=== PATIENT | male | born 1945 | race Caucasian/White ===

== ENCOUNTER 2023-09-22 11:05 | Inpatient (IN) | payer BC, MEDICARE ==
[2023-09-22 11:59] LABS: BASOPHILS ABSOLUTE AUTO 0.05 K/uL (0.00-0.10); BASOPHILS PERCENT AUTO 0.6 % (0.1-1.3); EOSINOPHILS PERCENT AUTO 0.3 % (0.0-5.4); HEMATOCRIT 35.6 % (38.4-49.7); HEMOGLOBIN 11.9 g/dL (12.9-16.9); IMMATURE GRAN ABSOLUTE AUTO 0.06 K/uL (0.00-0.23); IMMATURE GRAN PERCENT AUTO 0.8 % (0.0-0.7); LYMPHOCYTES ABSOLUTE AUTO 0.55 K/uL (0.8-3.3); LYMPHOCYTES PERCENT AUTO 6.9 % (11.4-47.7); MEAN CORPUSCULAR HEMOGLOBIN 32.2 pg (31.6-35.5); MEAN CORPUSCULAR HGB CONC 33.4 g/dL (31.6-35.5); MEAN CORPUSCULAR VOLUME 96.2 fL (81.4-99.0); MONOCYTES PERCENT AUTO 6.3 % (3.3-12.6); NEUTROPHILS ABSOLUTE AUTO 6.82 K/uL (1.0-7.6); NEUTROPHILS PERCENT AUTO 85.1 % (40.0-78.1); PLATELET COUNT,PLT 230 K/uL (130-375)
[2023-09-22 12:00] LABS: EOSINOPHILS ABSOLUTE AUTO 0.02 K/uL (0.00-0.40)
[2023-09-22 12:14] LABS: BLOOD UREA NITROGEN,BUN 15 mg/dL (7-18); CALCIUM 8.8 mg/dL (8.5-10.1); CARBON DIOXIDE,CO2 29 mmol/L (21-32); CHLORIDE,CL 100 mmol/L (100-108); CREATININE 1.4 mg/dL (0.8-1.3); ESTIMATED GFR 52 mL/min (>60); GLUCOSE RANDOM 104 mg/dL (74-106); POTASSIUM,K 5.1 mmol/L (3.6-5.2); SODIUM,NA 134 mmol/L (140-148)
[2023-09-22 12:15] LABS: ANION GAP 10.1 mmol/L (5.0-14.0)
[2023-09-22] MEDS: Furosemide 20 MG/2 ML VIAL IVPUSH ONE (14:25)
[2023-09-22] MEDS: Sodium Chloride 0.9% 500 ML IV SCH (14:27)
[2023-09-22 15:12] LABS: APPEARANCE,URINE CLEAR (CLEAR); BILIRUBIN,URINE NEGATIVE (NEGATIVE); COLOR,URINE YELLOW (YELLOW); GLUCOSE,URINE NEGATIVE (NEGATIVE); KETONES,URINE NEGATIVE (NEGATIVE); LEUKOCYTE ESTERASE,URINE NEGATIVE (NEGATIVE); NITRITE,URINE NEGATIVE (NEGATIVE); OCCULT BLOOD,URINE SMALL (NEGATIVE); PH,URINE 5.5 (5.0-8.0); PROTEIN,URINE NEGATIVE (NEGATIVE); UROBILINOGEN,URINE 0.2 EU/dL (0.2-1.0)
[2023-09-22 15:18] LABS: AMORPHOUS SEDIMENT,URINE NOT SEEN; BACTERIA,URINE NOT SEEN; EPITHELIAL CELLS,URINE RARE; MUCUS,URINE NOT SEEN; RBC,URINE 0-5 (0-5); WBC,URINE 0-5 (0-5)
[2023-09-22] MEDS ORDERED: Ondansetron 4 MG Tab.DIS PO PRN (15:33)
[2023-09-22] MEDS ORDERED: Zolpidem 5 MG Tab PO PRN (15:33)
[2023-09-22] MEDS ORDERED: Acetaminophen 325 MG Tab PO PRN (15:33)
[2023-09-22] MEDS ORDERED: cefTRIAXone 1 GM Vial IM SCH (15:45)
[2023-09-22] MEDS ORDERED: LORazepam 2 MG/ML SDV IV SCH (15:45)
[2023-09-22 16:00] LABS: INR 1.1
[2023-09-22 16:19] LABS: MAGNESIUM 1.9 mg/dL (1.8-2.4); PHOSPHORUS 2.5 mg/dL (2.5-4.9)
[2023-09-22] MEDS: Thiamine 100 MG Tab PO SCH (17:34)
[2023-09-22] MEDS: cefTRIAXone 1 GM in Sodium Chloride 0.9% 50 ML IV SCH (17:34)
[2023-09-22] MEDS: Heparin Sodium 5,000 Units/ML Vial SUBCUT SCH (17:34)
[2023-09-22] MEDS: Doxycycline 100 MG in Sodium Chloride 0.9% 100 ML IV SCH (18:18)
[2023-09-22] MEDS: MVI, Adult with Vitamin K 10 ML in Sodium Chloride 0.9% 1,000 ML IV ONE (18:24)
[2023-09-22] MEDS: Haloperidol 5 MG Tab PO STA (20:06)
[2023-09-22] MEDS: Melatonin 3 MG Tab PO SCH (23:04)
[2023-09-22] MEDS: Doxycycline 100 MG Cap PO SCH (23:04)
[2023-09-22] MEDS: Melatonin 3 MG Tab ONE (23:05)
[2023-09-23] MEDS: Albuterol/Ipratropium 3.0-0.5 MG/3 ML Neb Soln NEB SCH (04:53)
[2023-09-23 05:55] LABS: CALCIUM 8.9 mg/dL (8.5-10.1); CREATININE 1.4 mg/dL (0.8-1.3); EST CRCL DRUG DOSING (CG) 41.31 mL/min; POTASSIUM,K 4.5 mmol/L (3.6-5.2)
[2023-09-23 05:57] LABS: ANION GAP 13.5 mmol/L (5.0-14.0)
[2023-09-23] MEDS: Pantoprazole 40 MG Tab.CR PO SCH (08:01)
[2023-09-23] MEDS: Docusate Sodium 100 MG Cap PO SCH (08:26)
[2023-09-23] MEDS: Folic Acid 1 MG Tab PO SCH (08:26)
[2023-09-23] MEDS: Nicotine 14 MG/24 Hr Patch TRDERM SCH (08:26)
[2023-09-23] MEDS: atorvaSTATin 20 MG Tab PO SCH (08:27)
[2023-09-23] MEDS: Doxycycline 100 MG Cap PO SCH (08:27)
[2023-09-23] MEDS: Cefdinir 300 MG Cap PO SCH (10:59)
[2023-09-23] MEDS: LORazepam 1 MG Tab PO SCH (15:31)
[2023-09-24 08:42] LABS: BASE EXCESS ARTERIAL 0 mm/L; BICARBONATE,ARTERIAL 25.9 mmol/L (22.0-26.0); METHEMOGLOBIN 0.8 %; O2 SATURATION ARTERIAL 96.7 % (95.0-98.0); PCO2 ARTERIAL 50.3 mmHg (35.0-42.0); PO2 ARTERIAL 87.2 mmHg (75.0-100.0); TOTAL HEMOGLOBIN 11.8 g/dL (13.5-18.0)
[2023-09-24] MEDS: predniSONE 20 MG Tab PO ONE (08:47)
[2023-09-24] MEDS: Albuterol 0.083% 2.5 MG/3 ML Neb Soln NEB PRN (08:47)
[2023-09-24] MEDS ORDERED: guaiFENesin/Dextromethorphan 100-10 MG/5 ML Soln 10 ML Cup PO PRN (12:14)
[2023-09-24] MEDS ORDERED: Nystatin Topical Powder 15 GM Bottle TOP SCH (15:45)
[2023-09-24 16:48] LABS: HEPATITIS B SURFACE ANTIBODY <3.10 IU/L
[2023-09-24 17:10] LABS: APPEARANCE,URINE CLOUDY (CLEAR); BILIRUBIN,URINE SMALL (NEGATIVE); COLOR,URINE YELLOW (YELLOW); GLUCOSE,URINE NEGATIVE (NEGATIVE); KETONES,URINE NEGATIVE (NEGATIVE); LEUKOCYTE ESTERASE,URINE NEGATIVE (NEGATIVE); NITRITE,URINE NEGATIVE (NEGATIVE); OCCULT BLOOD,URINE MODERATE (NEGATIVE); PH,URINE 5.5 (5.0-8.0); PROTEIN,URINE 30 mg/dL (NEGATIVE); UROBILINOGEN,URINE 0.2 EU/dL (0.2-1.0)
[2023-09-24 17:15] LABS: HEPATITIS B CORE ANTIBODY,IGM Negative (Negative)
[2023-09-24 17:17] LABS: AMORPHOUS SEDIMENT,URINE MODERATE; BACTERIA,URINE RARE; EPITHELIAL CELLS,URINE RARE; MUCUS,URINE FEW
[2023-09-24 18:12] LABS: HEPATITIS A ANTIBODY, IGM Negative (Negative); HEPATITIS B CORE ANTIBODY, IGM Negative (Negative); HEPATITIS B SURFACE ANTIGEN Negative (Negative); HEPATITIS C AB CIA INTERP Negative (Negative); HEPATITIS C ANTIBODY CIA INDEX <0.02 IV
[2023-09-24] MEDS: Nystatin Topical Powder 15 GM Bottle TOP SCH (19:23)
[2023-09-24 20:09] LABS: HEPATITIS BE ANTIGEN Negative (Negative)
[2023-09-25] MEDS: predniSONE 20 MG Tab PO SCH (07:32)
[2023-09-25] MEDS: Acetaminophen 500 MG Tab PO SCH (14:14)
[2023-09-26 05:24] LABS: HEMOGLOBIN 12.2 g/dL (12.9-16.9); MEAN CORPUSCULAR HEMOGLOBIN 31.9 pg (31.6-35.5); MEAN CORPUSCULAR VOLUME 96.9 fL (81.4-99.0); RED BLOOD CELL COUNT 3.82 M/uL (4.14-5.76); WHITE BLOOD CELL COUNT,WBC 10.5 K/uL (3.2-11.0)
[2023-09-26 05:39] LABS: CALCIUM 9.4 mg/dL (8.5-10.1); CREATININE 1.5 mg/dL (0.8-1.3); EST CRCL DRUG DOSING (CG) 38.56 mL/min; POTASSIUM,K 4.9 mmol/L (3.6-5.2)
[2023-09-26 05:41] LABS: ANION GAP 9.9 mmol/L (5.0-14.0)
[2023-09-27] MEDS: risperiDONE 0.5 MG Tab PO SCH (21:22)
[2023-09-29] MEDS: Sennosides/Docusate Sodium 50-8.6 MG Tab PO PRN (21:07)
== END 2023-09-30 10:50 | disposition home or self-care (01) | DRG 194 ==
LOC: JP.ED 11:05 → JP.ICU 15:33
PROVIDERS: ADMIT Internal Medicine; ATTEND Hospitalist
PROC: 4A033R1 Measurement of Arterial Saturation, Peripheral, Percutaneous Approach (ICD-10-PCS; principal; 2023-09-22)
PROC: 0T9B70Z Drainage of Bladder with Drainage Device, Via Natural or Artificial Opening (ICD-10-PCS; 2023-09-24)
DX: R41.0 Disorientation, unspecified (principal); R60.9 Edema, unspecified; J18.9 Pneumonia, unspecified organism; J44.1 Chronic obstructive pulmonary disease with (acute) exacerbation; I95.9 Hypotension, unspecified; W01.0XXA Fall on same level from slipping, tripping and stumbling without subsequent striking against object, initial encounter; H54.7 Unspecified visual loss; I10 Essential (primary) hypertension; F17.210 Nicotine dependence, cigarettes, uncomplicated; M25.551 Pain in right hip; W19.XXXA Unspecified fall, initial encounter; G31.84 Mild cognitive impairment of uncertain or unknown etiology; F10.90 Alcohol use, unspecified, uncomplicated; R33.9 Retention of urine, unspecified; I87.2 Venous insufficiency (chronic) (peripheral); M16.11 Unilateral primary osteoarthritis, right hip; Z79.899 Other long term (current) drug therapy; Z98.890 Other specified postprocedural states
CPT/HCPCS: 36415; 71046 ×2; 80048; 81001; 82607; 82746; 83735; 84100; 84443; 85025; 85610; 96361; 96374; 99284; 99285; J1940; J7050; 36600; 51702; 51798; 71045; 71045-26; 73502-26-RT; 73502-RT; 76705; 80074; 82140; 82803; 85027; 86705; 86706; 87040; 87350; 93970; 94640; 96125-GO; 97110-GO; 97110-GP; 97161-GP; 97165-GO; 97530-GP; 97535-GO; 99222; 99232; 99233; 99238; A9270-GY; J0696; J1644; J3490; J7030; J7512; J7620

== ENCOUNTER 2023-10-16 10:48 | Inpatient (IN) | payer MEDICARE ==
[2023-10-16 11:36] LABS: BASOPHILS PERCENT AUTO 0.3 % (0.1-1.3); EOSINOPHILS ABSOLUTE AUTO 0.08 K/uL (0.00-0.40); EOSINOPHILS PERCENT AUTO 1.2 % (0.0-5.4); HEMATOCRIT 32.9 % (38.4-49.7); HEMOGLOBIN 10.7 g/dL (12.9-16.9); IMMATURE GRAN PERCENT AUTO 0.3 % (0.0-0.7); LYMPHOCYTES ABSOLUTE AUTO 0.72 K/uL (0.8-3.3); LYMPHOCYTES PERCENT AUTO 10.7 % (11.4-47.7); MEAN CORPUSCULAR HEMOGLOBIN 31.9 pg (31.6-35.5); MEAN CORPUSCULAR HGB CONC 32.5 g/dL (31.6-35.5); MEAN CORPUSCULAR VOLUME 98.2 fL (81.4-99.0); MONOCYTES ABSOLUTE AUTO 0.76 K/uL (0.20-0.90); MONOCYTES PERCENT AUTO 11.2 % (3.3-12.6); NEUTROPHILS ABSOLUTE AUTO 5.16 K/uL (1.0-7.6); NEUTROPHILS PERCENT AUTO 76.3 % (40.0-78.1); PLATELET COUNT,PLT 180 K/uL (130-375); RED BLOOD CELL COUNT 3.35 M/uL (4.14-5.76); WHITE BLOOD CELL COUNT,WBC 6.8 K/uL (3.2-11.0)
[2023-10-16 11:38] LABS: BASOPHILS ABSOLUTE AUTO 0.02 K/uL (0.00-0.10); IMMATURE GRAN ABSOLUTE AUTO 0.02 K/uL (0.00-0.23)
[2023-10-16 11:39] LABS: APPEARANCE,URINE CLEAR (CLEAR); BILIRUBIN,URINE NEGATIVE (NEGATIVE); COLOR,URINE YELLOW (YELLOW); GLUCOSE,URINE NEGATIVE (NEGATIVE); KETONES,URINE NEGATIVE (NEGATIVE); LEUKOCYTE ESTERASE,URINE NEGATIVE (NEGATIVE); NITRITE,URINE NEGATIVE (NEGATIVE); OCCULT BLOOD,URINE TRACE-INTACT (NEGATIVE); PROTEIN,URINE NEGATIVE (NEGATIVE)
[2023-10-16 11:50] LABS: AMORPHOUS SEDIMENT,URINE NOT SEEN; BACTERIA,URINE FEW; EPITHELIAL CELLS,URINE RARE; MUCUS,URINE RARE; RBC,URINE 0-5 (0-5); WBC,URINE 0-5 (0-5)
[2023-10-16 11:58] LABS: INR 1.1; PROTHROMBIN TIME 11.1 sec (9.2-10.6); PTT,PARTIAL THROMBOPLSTIN TIME 27.2 sec (21.8-27.3)
[2023-10-16 12:01] LABS: ANION GAP 5.7 mmol/L (5.0-14.0); CALCIUM 8.9 mg/dL (8.5-10.1); CREATININE 1.7 mg/dL (0.8-1.3); EST CRCL DRUG DOSING (CG) 34.02 mL/min; MAGNESIUM 1.9 mg/dL (1.8-2.4)
[2023-10-16 12:07] LABS: TROPONIN I HIGH SENSITIVITY 409.5 pg/mL (<=60.3)
[2023-10-16] MEDS: Furosemide 40 MG/4 ML VIAL IVPUSH ONE (13:35)
[2023-10-16] MEDS ORDERED: Sodium Chloride 0.9% 10 ML Syringe FLUSH PRN (16:29)
[2023-10-16] MEDS ORDERED: Polyethylene Glycol 3350 Powder 17 GM Packet PO PRN (16:29)
[2023-10-16] MEDS ORDERED: Albuterol 0.083% 2.5 MG/3 ML Neb Soln NEB PRN (16:29)
[2023-10-16] MEDS: Sodium Chloride 0.9% 100 ML IV ONE (16:41)
[2023-10-16] MEDS: Iopamidol 755 Mg/ML 100 ML Bottle IV ONE (16:41)
[2023-10-16] MEDS: Sodium Chloride 0.9% 10 ML Syringe FLUSH ONE (16:41)
[2023-10-16] MEDS: Acetaminophen 325 MG Tab PO PRN (17:22)
[2023-10-16] MEDS: Haloperidol 1 MG Tab PO PRN (17:23)
[2023-10-16] MEDS: Enoxaparin 40 MG/0.4 ML Syringe SUBCUT SCH (17:23)
[2023-10-16] MEDS: risperiDONE 0.5 MG Tab PO SCH (20:07)
[2023-10-16] MEDS: Melatonin 3 MG Tab PO SCH (20:07)
[2023-10-16] MEDS: atorvaSTATin 20 MG Tab PO SCH (20:07)
[2023-10-17 04:39] LABS: BASOPHILS ABSOLUTE AUTO 0.03 K/uL (0.00-0.10); BASOPHILS PERCENT AUTO 0.6 % (0.1-1.3); EOSINOPHILS ABSOLUTE AUTO 0.11 K/uL (0.00-0.40); EOSINOPHILS PERCENT AUTO 2.2 % (0.0-5.4); HEMATOCRIT 33.5 % (38.4-49.7); HEMOGLOBIN 10.8 g/dL (12.9-16.9); IMMATURE GRAN PERCENT AUTO 0.4 % (0.0-0.7); LYMPHOCYTES ABSOLUTE AUTO 0.74 K/uL (0.8-3.3); LYMPHOCYTES PERCENT AUTO 14.9 % (11.4-47.7); MEAN CORPUSCULAR HEMOGLOBIN 31.9 pg (31.6-35.5); MEAN CORPUSCULAR HGB CONC 32.2 g/dL (31.6-35.5); MEAN CORPUSCULAR VOLUME 98.8 fL (81.4-99.0); MONOCYTES ABSOLUTE AUTO 0.56 K/uL (0.20-0.90); MONOCYTES PERCENT AUTO 11.2 % (3.3-12.6); NEUTROPHILS ABSOLUTE AUTO 3.52 K/uL (1.0-7.6); NEUTROPHILS PERCENT AUTO 70.7 % (40.0-78.1); PLATELET COUNT,PLT 191 K/uL (130-375); RED BLOOD CELL COUNT 3.39 M/uL (4.14-5.76)
[2023-10-17 05:04] LABS: A/G RATIO 0.8 (1.2-2.2); ALANINE AMINOTRANSFERASE,ALT 32 U/L (12-78); ALBUMIN 2.6 g/dL (3.4-5.0); ALKALINE PHOSPHATASE 113 U/L (46-116); ASPARTATE AMNIOTRANSFERASE,AST 24 U/L (15-37); BILIRUBIN TOTAL 0.5 mg/dL (0.2-1.0); BLOOD UREA NITROGEN,BUN 31 mg/dL (7-18); CALCIUM 8.9 mg/dL (8.5-10.1); CARBON DIOXIDE,CO2 35 mmol/L (21-32); CHLORIDE,CL 104 mmol/L (100-108); CREATININE 1.5 mg/dL (0.8-1.3); EST CRCL DRUG DOSING (CG) 38.56 mL/min; ESTIMATED GFR 48 mL/min (>60); GLUCOSE RANDOM 113 mg/dL (74-106); SODIUM,NA 143 mmol/L (140-148)
[2023-10-17 05:10] LABS: IMMATURE GRAN ABSOLUTE AUTO 0.02 K/uL (0.00-0.23)
[2023-10-17 05:16] LABS: TROPONIN I HIGH SENSITIVITY 340.6 pg/mL (<=60.3)
[2023-10-17] MEDS: Nicotine 21 MG/24 Hr Patch TRDERM SCH (08:58)
[2023-10-17] MEDS: Ondansetron 4 MG/2 ML SDV IV PRN (08:58)
[2023-10-17] MEDS: Furosemide 20 MG/2 ML VIAL IVPUSH SCH (08:58)
[2023-10-17] MEDS: Docusate Sodium 100 MG Cap PO SCH (08:59)
[2023-10-17] MEDS: Lisinopril 20 MG Tab PO SCH (08:59)
[2023-10-17] MEDS ORDERED: Acetaminophen 500 MG Tab PO SCH (11:00)
[2023-10-17] MEDS: Acetaminophen 500 MG Tab PO SCH (14:04)
[2023-10-17] MEDS: Diclofenac Sodium 1% Gel 100 GM Tube TOP SCH (16:38)
[2023-10-17] MEDS: Enoxaparin 40 MG/0.4 ML Syringe SUBCUT SCH (16:39)
[2023-10-18 05:31] LABS: HEMATOCRIT 33.6 % (38.4-49.7); HEMOGLOBIN 10.7 g/dL (12.9-16.9); MEAN CORPUSCULAR HEMOGLOBIN 31.8 pg (31.6-35.5); MEAN CORPUSCULAR HGB CONC 31.8 g/dL (31.6-35.5); RED BLOOD CELL COUNT 3.36 M/uL (4.14-5.76); WHITE BLOOD CELL COUNT,WBC 4.8 K/uL (3.2-11.0)
[2023-10-18 05:50] LABS: CALCIUM 8.6 mg/dL (8.5-10.1); CREATININE 1.7 mg/dL (0.8-1.3); EST CRCL DRUG DOSING (CG) 34.02 mL/min
[2023-10-19] MEDS: Sodium Chloride 0.9% 500 ML IV ONE (05:35)
[2023-10-19 06:05] LABS: BASOPHILS PERCENT AUTO 0.4 % (0.1-1.3); EOSINOPHILS ABSOLUTE AUTO 0.12 K/uL (0.00-0.40); EOSINOPHILS PERCENT AUTO 2.5 % (0.0-5.4); HEMATOCRIT 31.5 % (38.4-49.7); HEMOGLOBIN 10.2 g/dL (12.9-16.9); IMMATURE GRAN PERCENT AUTO 0.4 % (0.0-0.7); LYMPHOCYTES ABSOLUTE AUTO 0.99 K/uL (0.8-3.3); LYMPHOCYTES PERCENT AUTO 20.8 % (11.4-47.7); MEAN CORPUSCULAR HEMOGLOBIN 31.9 pg (31.6-35.5); MEAN CORPUSCULAR HGB CONC 32.4 g/dL (31.6-35.5); MEAN CORPUSCULAR VOLUME 98.4 fL (81.4-99.0); MONOCYTES ABSOLUTE AUTO 0.63 K/uL (0.20-0.90); MONOCYTES PERCENT AUTO 13.2 % (3.3-12.6); NEUTROPHILS ABSOLUTE AUTO 2.98 K/uL (1.0-7.6); NEUTROPHILS PERCENT AUTO 62.7 % (40.0-78.1); PLATELET COUNT,PLT 177 K/uL (130-375); WHITE BLOOD CELL COUNT,WBC 4.8 K/uL (3.2-11.0)
[2023-10-19 06:13] LABS: BASOPHILS ABSOLUTE AUTO 0.02 K/uL (0.00-0.10); IMMATURE GRAN ABSOLUTE AUTO 0.02 K/uL (0.00-0.23)
[2023-10-19 06:16] LABS: CALCIUM 8.5 mg/dL (8.5-10.1); CREATININE 1.6 mg/dL (0.8-1.3); EST CRCL DRUG DOSING (CG) 36.15 mL/min; POTASSIUM,K 3.8 mmol/L (3.6-5.2)
[2023-10-19 06:19] LABS: ANION GAP 10.8 mmol/L (5.0-14.0)
[2023-10-19 07:52] LABS: APPEARANCE,URINE SLIGHTLY CLOUDY (CLEAR); BILIRUBIN,URINE SMALL (NEGATIVE); COLOR,URINE YELLOW (YELLOW); GLUCOSE,URINE NEGATIVE (NEGATIVE); KETONES,URINE TRACE mg/dL (NEGATIVE); LEUKOCYTE ESTERASE,URINE NEGATIVE (NEGATIVE); NITRITE,URINE NEGATIVE (NEGATIVE); OCCULT BLOOD,URINE TRACE-INTACT (NEGATIVE); PROTEIN,URINE 100 mg/dL (NEGATIVE)
[2023-10-19 07:59] LABS: AMORPHOUS SEDIMENT,URINE RARE; BACTERIA,URINE NOT SEEN; EPITHELIAL CELLS,URINE NOT SEEN; MUCUS,URINE NOT SEEN; WBC,URINE NOT SEEN (0-5)
[2023-10-19] MEDS: Furosemide 40 MG Tab PO SCH (10:36)
[2023-10-20 05:42] LABS: ANION GAP 8.3 mmol/L (5.0-14.0); CALCIUM 8.6 mg/dL (8.5-10.1); CREATININE 1.5 mg/dL (0.8-1.3); EST CRCL DRUG DOSING (CG) 38.56 mL/min; MAGNESIUM 1.9 mg/dL (1.8-2.4); POTASSIUM,K 3.8 mmol/L (3.6-5.2)
[2023-10-20] MEDS: Metoprolol Succinate 25 MG Tab.ER PO SCH (10:54)
[2023-10-20] MEDS ORDERED: Dimethicone 20%/Zinc Oxide 25% 56 GM Spray Bottle TOP PRN (19:58)
[2023-10-20] MEDS: risperiDONE 0.5 MG Tab PO SCH (20:43)
[2023-10-21 06:43] LABS: CALCIUM 8.6 mg/dL (8.5-10.1); CREATININE 1.5 mg/dL (0.8-1.3); EST CRCL DRUG DOSING (CG) 38.56 mL/min; POTASSIUM,K 3.8 mmol/L (3.6-5.2)
[2023-10-21 06:47] LABS: ANION GAP 7.8 mmol/L (5.0-14.0)
[2023-10-21] MEDS: Ondansetron 4 MG Tab.DIS PO PRN (13:23)
== END 2023-10-21 13:25 | DRG 292 ==
LOC: JP.ED 10:48 → JP.ICU 16:19
PROVIDERS: ADMIT Hospitalist; ATTEND Internal Medicine
DX: I11.0 Hypertensive heart disease with heart failure (principal); I13.0 Hypertensive heart and chronic kidney disease with heart failure and stage 1 through stage 4 chronic kidney disease, or unspecified chronic kidney disease; F02.B11 Dementia in other diseases classified elsewhere, moderate, with agitation; Z87.891 Personal history of nicotine dependence; F02.B18 Dementia in other diseases classified elsewhere, moderate, with other behavioral disturbance; I24.89 Other forms of acute ischemic heart disease; Z66 Do not resuscitate; I50.9 Heart failure, unspecified; N18.30 Chronic kidney disease, stage 3 unspecified; H54.7 Unspecified visual loss; G30.1 Alzheimer's disease with late onset; M16.11 Unilateral primary osteoarthritis, right hip; J44.9 Chronic obstructive pulmonary disease, unspecified; F17.210 Nicotine dependence, cigarettes, uncomplicated; Z79.899 Other long term (current) drug therapy; Z98.890 Other specified postprocedural states; Z87.01 Personal history of pneumonia (recurrent)
CPT/HCPCS: 36415; 71046 ×2; 71275; 80048; 81001; 83735; 83880; 84484 ×2; 85025; 85610; 85730; 93005 ×2; 96374; 99285; J1940; 80053; 85027; 93010; 97116-GP; 97161-GP; 97165-GO; 97530-GP; 99223; 99233; 99239; A9270-GY; J1650; J2405; J3490; J7040; Q0162; Q9967